=== PATIENT | female | born 1990 | race African-American/Black ===

== ENCOUNTER 2023-03-10 21:17 | Emergency (ER) | payer SELFPAY ==
[~2023-03-10] VITALS: Ht 160 cm; Wt 90.7 kg
[2023-03-10 21:20] VITALS: BP 121/64
--- NOTE | 2023-03-10 21:42 | NUR ---
Patient taken to bed 11.
--- NOTE | 2023-03-10 22:27 | NUR ---
MD Guillory at bedside examining pt.
--- NOTE | 2023-03-10 22:40 | NUR ---
Patient discharged with v/s stable. Written and verbal after care instructions given and explained. Patient verbalized understanding. Ambulatory with steady gait. All questions addressed prior to discharge. Advised to follow up with PMD.
== END 2023-03-10 22:40 | disposition home or self-care (01) ==
LOC: MED 21:17
DX: R00.2 Palpitations (principal)
CPT/HCPCS: 93005; 99283